=== PATIENT | female | born 1995 | race American Indian/Alaskan Native ===

== ENCOUNTER 2017-10-07 04:54 | Emergency (ER) | payer MEDICAID, OTHER ==
[2017-10-07 05:16] VITALS: BP 140/86
[2017-10-07] MEDS ORDERED: Ondansetron 4 MG/2 ML SDV IV ONE (05:16)
--- NOTE | 2017-10-07 05:19 | EDM.PDOC ---
ED HPI GENERAL MEDICAL PROBLEM - General Chief Complaint: Abdominal Pain Stated Complaint: SEVERE STOMACH PAIN [id number] Time Seen by Provider: 10/07/17 05:17 Source of Information: Reports: Patient History Limitations: Reports: No Limitations - History of Present Illness INITIAL COMMENTS - FREE TEXT/NARRATIVE: c/o abd pain since 11pm tonight. nauseous but no V/D. ate potatoes & eggs last night Lower Abdominal Pain Score (Numeric/FACES): 9 - Related Data Allergies Allergy/AdvReac Type Severity Reaction Status Date / Time No Known Allergies Allergy Verified 01/30/15 00:52 Home Meds: Home Meds Amitriptyline HCl 1 tab PO DAILY 10/07/17 [History] Cholecalciferol (Vitamin D3) [Vitamin D] 10,000 units PO WEEKLY 10/07/17 [ History] Montelukast [Singulair] 1 tab PO DAILY 10/07/17 [History] Past Medical History - Past Health History Medical/Surgical History: Denies Medical/Surgical History Respiratory History: Reports: Asthma Gastrointestinal History: Reports: Helicobacter Pylori Psychiatric History: Reports: Anxiety Social & Family History - Tobacco Use Smoking Status *Q: Unknown Ever Smoked Second Hand Smoke Exposure: No - Caffeine Use Caffeine Use: Reports: Coffee - Alcohol Use Days Per Week of Alcohol Use: 0 - Recreational Drug Use Recreational Drug Use: No ED ROS GENERAL - Review of Systems Review Of Systems: ROS reveals no pertinent complaints other than HPI. ED EXAM, GI/ABD - Physical Exam Exam: See Below Exam Limited By: No Limitations General Appearance: Alert, WD/WN, Mild Distress Ears: Hearing Grossly Normal Throat/Mouth: Normal Voice, No Airway Compromise Head: Atraumatic Neck: Non-Tender, Full Range of Motion Respiratory/Chest: No Respiratory Distress Cardiovascular: Regular Rate, Rhythm GI/Abdominal Exam: Soft, Tender, Other (periumb). No: Distended, Guarding, Rigid, Rebound Neurological: Alert, Oriented, Normal Cognition, Normal Gait, No Motor/Sensory Deficits Psychiatric: Flat Affect Skin Exam: Warm, Dry, Normal Color Lymphatic: No Adenopathy Course - Vital Signs Last Recorded V/S: Last Vital Signs Temp 36.7 C 10/07/17 05:10 Pulse 98 10/07/17 05:10 Resp 20 10/07/17 05:10 BP 140/86 10/07/17 05:10 Pulse Ox 100 10/07/17 05:10 - Orders/Labs/Meds Orders: Active Orders 24 hr Category Date Time Status CULTURE URINE [RM] Stat Lab 10/07/17 05:35 Received Labs: Laboratory Tests 10/07/17 10/07/17 10/07/17 Range/Units 05:00 05:00 05:55 WBC 14.3 H (5.0-10.0) 10^3/uL RBC 4.96 (4.2-5.4) 10^6/uL Hgb 14.1 (12.0-16.0) g/dL Hct 42.9 (37.0-47.0) % MCV 86.5 (80-100) fL MCH 28.4 (27.0-34.0) pg MCHC 32.9 L (33.0-35.0) g/dL Plt Count 357 D (150-450) 10^3/uL Neut % (Auto) 63.0 (42.2-75.2) % Lymph % (Auto) 25.6 (20.5-50.1) % [place] % (Auto) 7.1 (2-8) % Eos % (Auto) 3.8 H (1.0-3.0) % Baso % (Auto) 0.5 (0.0-1.0) % Sodium 137 (135-145) mmol/L Potassium 3.6 (3.6-5.0) mmol/L Chloride 109 (101-111) mmol/L Carbon Dioxide 21.0 (21.0-31.0) mmol/L Anion Gap 10.6 BUN 9 (7-18) mg/dL Creatinine 0.6 (0.6-1.3) mg/dL Est Cr Clr Drug Dosing 127.47 mL/min Estimated GFR (MDRD) > 60 BUN/Creatinine Ratio 15.00 Glucose 123 H (74-105) mg/dL Calcium 9.2 (8.4-10.2) mg/dl Total Bilirubin 0.7 (0.2-1.0) mg/dL AST 46 H (10-42) IU/L ALT 51 (10-60) IU/L Alkaline Phosphatase 98 (42-121) IU/L Total Protein 7.8 (6.7-8.2) g/dl Albumin 4.3 (3.2-5.5) g/dl Globulin 3.5 Albumin/Globulin Ratio 1.23 Amylase 25 L (28-100) U/L Lipase 19 L (22-51) U/L Urine Color Dark yellow (YELLOW) Urine Appearance Clear (CLEAR) Urine pH 5.5 (5.0-9.0) Ur Specific [place] >= 1.030 (1.005-1.030) Urine Protein Negative (NEGATIVE) Urine Glucose (UA) Negative (NEGATIVE) Urine Ketones Negative (NEGATIVE) Urine Occult Blood Trace-lysed H (NEGATIVE) Urine Nitrite Negative (NEGATIVE) Urine Bilirubin Negative (NEGATIVE) Urine Urobilinogen 0.2 (0.2-1.0) mg/dL Ur Leukocyte Esterase Small H (NEGATIVE) Urine RBC 5-10 H /HPF Urine WBC 50-75 H (0-5/HPF) /HPF Ur Epithelial Cells Moderate H /HPF Urine Bacteria Few (0-FEW/HPF) /HPF Urine Mucus Few H /LPF Urine HCG, Qual 10/07/17 Range/Units 05:55 WBC (5.0-10.0) 10^3/uL RBC (4.2-5.4) 10^6/uL Hgb (12.0-16.0) g/dL Hct (37.0-47.0) % MCV (80-100) fL MCH (27.0-34.0) pg MCHC (33.0-35.0) g/dL Plt Count (150-450) 10^3/uL Neut % (Auto) (42.2-75.2) % Lymph % (Auto) (20.5-50.1) % [place] % (Auto) (2-8) % Eos % (Auto) (1.0-3.0) % Baso % (Auto) (0.0-1.0) % Sodium (135-145) mmol/L Potassium (3.6-5.0) mmol/L Chloride (101-111) mmol/L Carbon Dioxide (21.0-31.0) mmol/L Anion Gap BUN (7-18) mg/dL Creatinine (0.6-1.3) mg/dL Est Cr Clr Drug Dosing mL/min Estimated GFR (MDRD) BUN/Creatinine Ratio Glucose (74-105) mg/dL Calcium (8.4-10.2) mg/dl Total Bilirubin (0.2-1.0) mg/dL AST (10-42) IU/L ALT (10-60) IU/L Alkaline Phosphatase (42-121) IU/L Total Protein (6.7-8.2) g/dl Albumin (3.2-5.5) g/dl Globulin Albumin/Globulin Ratio Amylase (28-100) U/L Lipase (22-51) U/L Urine Color (YELLOW) Urine Appearance (CLEAR) Urine pH (5.0-9.0) Ur Specific [place] (1.005-1.030) Urine Protein (NEGATIVE) Urine Glucose (UA) (NEGATIVE) Urine Ketones (NEGATIVE) Urine Occult Blood (NEGATIVE) Urine Nitrite (NEGATIVE) Urine Bilirubin (NEGATIVE) Urine Urobilinogen (0.2-1.0) mg/dL Ur Leukocyte Esterase (NEGATIVE) Urine RBC /HPF Urine WBC (0-5/HPF) /HPF Ur Epithelial Cells /HPF Urine Bacteria (0-FEW/HPF) /HPF Urine Mucus /LPF Urine HCG, Qual Negative Meds: Medications Discontinued Medications Generic Name Dose Route Start Last Admin Trade Name Freq PRN Reason Stop Dose Admin Morphine Sulfate 2 mg 10/07/17 06:13 10/07/17 06:16 Morphine IVPUSH 10/07/17 06:14 2 mg ONETIME ONE Administration Ondansetron HCl 4 mg 10/07/17 05:16 10/07/17 06:13 Zofran IV 10/07/17 05:17 4 mg ONETIME ONE Administration Departure - Departure Time of Disposition: 07:50 Disposition: Home, Self-Care 01 Condition: Good Clinical Impression: UTI, Urinary tract infectious disease - Discharge Information Referrals: Erin Berger NP [Primary Care Provider] - Forms: ED Department Discharge Additional Instructions: 1) drink lots of liquids 2) follow up at clinic or recheck as needed rx given; bactrim DS bid x 20 pyridium 100mg tid prn x 12
[2017-10-07 05:31] LABS: CHLORIDE,CL 109 mmol/L (101-111); SODIUM,NA 137 mmol/L (135-145)
[2017-10-07] MEDS ORDERED: Morphine 2 MG/ML Syringe IVPUSH ONE (06:13)
== END 2017-10-07 07:50 | disposition home or self-care (01) ==
LOC: DL.ED 04:54
DX: N39.0 Urinary tract infection, site not specified (principal)
CPT/HCPCS: 36415; 74176; 80053; 81001; 81025; 82150; 83690; 85025; 87086; 96374; 96375; 99284; J2270; J2405

== ENCOUNTER 2019-12-23 16:49 | Emergency (ER) | payer MEDICAID, OTHER ==
[2019-12-23 16:58] VITALS: BP 158/68; PULSE 100
[2019-12-23] MEDS ORDERED: Sodium Chloride 0.9% 1,000 ML IV ONE (17:07)
[2019-12-23] MEDS ORDERED: Ketorolac 30 MG/ML SDV IVPUSH ONE (17:07)
--- NOTE | 2019-12-23 17:14 | EDM.PDOC ---
ED HPI GENERAL MEDICAL PROBLEM - General Chief Complaint: Back Pain or Injury Stated Complaint: LOWER BACK PAIN/HEADACHE Time Seen by Provider: 12/23/19 17:00 Source of Information: Reports: Patient History Limitations: Reports: No Limitations - History of Present Illness INITIAL COMMENTS - FREE TEXT/NARRATIVE: This 24 yo female patient reports to the ED with a migraine headache and lower back pain radiating to her legs. The patient reports her headache started today. The patient reports a history of migraine headaches, but her abortive medications are all . The patient has not taken Tylenol or ibuprofen for temporary symptom relief. The patient also reports low back pain. The patient reports her low back pain has been present for awhile and the patient had an MRI last week for her low back pain. The patient reports she is waiting for her provider to call her back with the results. Onset: Today Duration: Constant Location: Reports: Head, Back Quality: Reports: Ache Severity: Moderate Improves with: Reports: None Worsens with: Reports: None Context: Reports: Other Left Back Pain Score (Numeric/FACES): 7 - Related Data Allergies Allergy/AdvReac Type Severity Reaction Status Date / Time hydromorphone [From Dilaudid] Allergy Anaphylactic Verified 12/23/19 16:56 Shock Home Meds: Home Meds Amitriptyline HCl 1 tab PO DAILY 10/07/17 [History] Past Medical History - Past Health History Medical/Surgical History: Denies Medical/Surgical History HEENT History: Reports: Impaired Vision Cardiovascular History: Reports: None Respiratory History: Reports: Asthma Gastrointestinal History: Reports: Helicobacter Pylori Genitourinary History: Reports: None CHILDREN'S NURSERY ASSISTANT History: Reports: None Musculoskeletal History: Reports: Back Pain, Chronic, Other (See Below) Other Musculoskeletal History: bulging disk Neurological History: Reports: Migraines Psychiatric History: Reports: Anxiety Endocrine/Metabolic History: Reports: Obesity/BMI 30+ Hematologic History: Reports: None Immunologic History: Reports: None Oncologic (Cancer) History: Reports: None Dermatologic History: Reports: None - Infectious Disease History Infectious Disease History: Reports: None - Past Surgical History Head Surgeries/Procedures: Reports: None Social & Family History - Family History Family Medical History: Noncontributory - Tobacco Use Smoking Status *Q: Never Smoker Second Hand Smoke Exposure: No - Caffeine Use Caffeine Use: Reports: Soda - Recreational Drug Use Recreational Drug Use: No ED ROS GENERAL - Review of Systems Review Of Systems: Comprehensive ROS is negative, except as noted in HPI. - Physical Exam Exam: See Below Exam Limited By: No Limitations General Appearance: Alert, WD/WN, Moderate Distress, Obese Eye Exam: Bilateral Eye: EOMI, Normal Inspection, PERRL Ears: Normal External Exam, Normal Canal, Hearing Grossly Normal, Normal TMs Nose: Normal Inspection, Normal Mucosa, No Blood Throat/Mouth: Normal Inspection, Normal Lips, Normal Teeth, Normal Gums, Normal Oropharynx, Normal Voice, No Airway Compromise Head Exam: Atraumatic, Normocephalic Neck: Normal Inspection, Supple, Non-Tender, Full Range of Motion Respiratory/Chest: No Respiratory Distress, Lungs Clear, Normal Breath Sounds, No Accessory Muscle Use, Chest Non-Tender Cardiovascular: Normal Peripheral Pulses, Regular Rate, Rhythm, No Edema, No Gallop, No JVD, No Murmur, No Rub GI/Abdominal: Normal Bowel Sounds, Soft, Non-Tender, No Organomegaly, No Distention, No Abnormal Bruit, No Mass (Female) Exam: Deferred Rectal (Female) Exam: Deferred Neuro Exam (Abbreviated): Alert, Oriented, CN II-XII Intact, Normal Cognition, Normal Gait, Normal Reflexes, No Motor/Sensory Deficits Extremities: Normal Inspection Psychiatric: Normal Affect, Normal Mood Skin Exam: Warm, Dry, Intact, Normal Color, No Rash Course - Vital Signs Last Recorded V/S: Last Vital Signs Temp 35.8 C L 12/23/19 16:55 Pulse 100 12/23/19 16:55 Resp 20 12/23/19 16:55 BP 158/68 H 12/23/19 16:55 Pulse Ox 96 12/23/19 16:55 - Orders/Labs/Meds Orders: Active Orders 24 hr Category Date Time Status Sodium Chloride 0.9% [Normal Saline] 1,000 ml Med 12/23/19 17:07 Ordered IV .BOLUS Medication Orders Sodium Chloride (Normal Saline) 1,000 mls @ 999 mls/hr IV .BOLUS ONE Stop: 12/23/19 18:07 Last Admin: 12/23/19 17:12 Dose: 999 mls/hr Documented by: YULIANA Meds: Medications Generic Name Dose Route Start Last Admin Trade Name Freq PRN Reason Stop Dose Admin Sodium Chloride 1,000 mls @ 999 mls/hr 12/23/19 17:07 12/23/19 17:12 Normal Saline IV 12/23/19 18:07 999 mls/hr .BOLUS ONE Administration Discontinued Medications Generic Name Dose Route Start Last Admin Trade Name Scooby PRN Reason Stop Dose Admin Acetaminophen 1,000 mg 12/23/19 17:48 Tylenol Extra Strength PO 12/23/19 17:49 ONETIME ONE Ketorolac Tromethamine 30 mg 12/23/19 17:07 12/23/19 17:12 Toradol IVPUSH 12/23/19 17:08 30 mg ONETIME ONE Administration Departure - Departure Time of Disposition: 17:50 Disposition: Home, Self-Care 01 Condition: Fair Clinical Impression: Migraine Qualifiers: Migraine type: unspecified Status migrainosus presence: with status migrainosus Intractability: not intractable Qualified Code(s): G43.901 - Migraine, unspecified, not intractable, with status migrainosus Chronic back pain Qualifiers: Back pain location: low back pain Back pain laterality: bilateral Sciatica presence: with sciatica Sciatica laterality: bilateral sciatica Qualified Code(s): M54.42 - Lumbago with sciatica, left side; M54.41 - Lumbago with sciatica, right side; G89.29 - Other chronic pain - Discharge Information *PRESCRIPTION DRUG MONITORING PROGRAM REVIEWED*: Not Applicable *COPY OF PRESCRIPTION DRUG MONITORING REPORT IN PATIENT MARIAA: Not Applicable Instructions: Migraine Headache, [id number], Chronic Back Pain, [id number] Forms: ED Department Discharge Care Plan Goals: The patient was advised of the examination and lab results during the visit. The patient was given IV fluids, oral Tylenol and IV Toradol while in the ED. The patient was encouraged to increase her oral fluid intake over the next 48 hours. The patient may take Tylenol or ibuprofen as directed for temporary symptom relief. If the patient has any additional symptoms or concerns, the patient should either return to the emergency department or visit her primary care facility. Sepsis Event Note (ED) - Evaluation Sepsis Screening Result: No Definite Risk - Focused Exam Vital Signs: Vital Signs Temp Pulse Resp BP Pulse Ox 12/23/19 16:55 35.8 C L 100 20 158/68 H 96 - My Orders Last 24 Hours: My Active Orders 12/23/19 17:07 Sodium Chloride 0.9% [Normal Saline] 1,000 ml IV .BOLUS - Assessment/Plan Last 24 Hours: My Active Orders 12/23/19 17:07 Sodium Chloride 0.9% [Normal Saline] 1,000 ml IV .BOLUS
[2019-12-23] MEDS ORDERED: Acetaminophen 500 MG Tab PO ONE (17:48)
== END 2019-12-23 17:55 | disposition home or self-care (01) ==
LOC: DL.ED 16:49
DX: G43.901 Migraine, unspecified, not intractable, with status migrainosus (principal); M54.42 Lumbago with sciatica, left side; M54.41 Lumbago with sciatica, right side; G89.29 Other chronic pain; F41.9 Anxiety disorder, unspecified; E66.9 Obesity, unspecified; Z88.5 Allergy status to narcotic agent; Z79.899 Other long term (current) drug therapy; Z68.41 Body mass index [BMI] 40.0-44.9, adult
CPT/HCPCS: 96374; 99283; A9270; J1885; J7030

== ENCOUNTER 2020-07-13 16:31 | Emergency (ER) | payer MEDICAID ==
[2020-07-13 17:29] VITALS: BP 128/91; PULSE 112
[2020-07-13 18:16] LABS: ANION GAP 11.9 mEq/L (7-13); CHLORIDE,CL 105 mmol/L (98-107); SODIUM,NA 139 mmol/L (136-145)
--- NOTE | 2020-07-13 18:17 | EDM.PDOC ---
ED HPI GENERAL MEDICAL PROBLEM - General Chief Complaint: Genitourinary Problem Stated Complaint: EXCESSIVE BLEEDING MENSTRUAL Time Seen by Provider: 07/13/20 17:45 Source of Information: Reports: Patient, RN, RN Notes Reviewed History Limitations: Reports: No Limitations - History of Present Illness INITIAL COMMENTS - FREE TEXT/NARRATIVE: Patient presents to the ED via personal vehicle with complaints of heavy menstrual bleeding for the past two days. The patient states her menses started on 07/11/20 and has been abnormally heavy; she has been saturating pads every two hours. She notes her LMP prior to this cycle was 06/04/20, and this cycle may have been late. She denies likelihood of . Additionally, she attests to headache, fatigue, nausea, bloating, abdominal cramps and constipation. She denies fever, shaking chills, palpitations, vomiting, dysuria, hematuria, hematochezia, melena, or diarrhea. She states she has taken one dose of Advil 400mg this morning for abdominal cramps which offered her [id number] relief of symptoms. She denies any recent rough sexual activity. Vaginal Pain Score (Numeric/FACES): 4 - Related Data Allergies Allergy/AdvReac Type Severity Reaction Status Date / Time hydromorphone [From Dilaudid] Allergy Anaphylactic Verified 07/13/20 17:27 Shock Home Meds: Home Meds Amitriptyline HCl 1 tab PO DAILY 10/07/17 [History] Loratadine [Claritin] 10 mg PO ASDIRECTED 04/21/20 [History] clonazePAM [Clonazepam] 1 mg PO ASDIRECTED 04/21/20 [History] Past Medical History - Past Health History Medical/Surgical History: Denies Medical/Surgical History HEENT History: Reports: Impaired Vision Cardiovascular History: Reports: None Respiratory History: Reports: Asthma Gastrointestinal History: Reports: Helicobacter Pylori Genitourinary History: Reports: None PLANT CYTOLOGIST History: Reports: None Musculoskeletal History: Reports: Back Pain, Chronic, Other (See Below) Other Musculoskeletal History: bulging disk Neurological History: Reports: Migraines Psychiatric History: Reports: Anxiety Endocrine/Metabolic History: Reports: Obesity/BMI 30+ Hematologic History: Reports: None Immunologic History: Reports: None Oncologic (Cancer) History: Reports: None Dermatologic History: Reports: None - Infectious Disease History Infectious Disease History: Reports: None - Past Surgical History Head Surgeries/Procedures: Reports: None Social & Family History - Family History Family Medical History: No Pertinent Family History - Tobacco Use Tobacco Use Status *Q: Never Tobacco User - Caffeine Use Caffeine Use: Reports: Soda - Recreational Drug Use Recreational Drug Use: No ED ROS GENERAL - Review of Systems Review Of Systems: Comprehensive ROS is negative, except as noted in HPI. ED EXAM, GI/ABD - Physical Exam Exam: See Below Exam Limited By: No Limitations General Appearance: Alert, No Apparent Distress Eyes: Bilateral: Normal Appearance, EOMI Throat/Mouth: Normal Inspection, Normal Voice, No Airway Compromise Respiratory/Chest: No Respiratory Distress, Lungs Clear, Normal Breath Sounds, No Accessory Muscle Use, Chest Non-Tender Cardiovascular: Normal Peripheral Pulses, Regular Rate, Rhythm, No Edema, No Gallop, No JVD, No Murmur, No Rub GI/Abdominal Exam: Soft, No Distention, No Mass, Pelvis Stable, Tender (To LUQ and RLQ), Abnormal Bowel Sounds (Hypoactive bowel sounds) Rectal (Female) Exam: Deferred Back Exam: Normal Inspection, Full Range of Motion, CVA Tenderness (R). No: CVA Tenderness (L) Extremities: Normal Inspection, Normal Range of Motion, Non-Tender, Normal Capillary Refill, No Pedal Edema Neurological: Alert, Oriented, CN II-XII Intact, Normal Cognition, Normal Gait, No Motor/Sensory Deficits Psychiatric: Normal Affect, Normal Mood Skin Exam: Warm, Dry, Intact, Normal Color, No Rash. No: Ecchymosis, Erythema, Jaundice, Mottled, Pallor, Petechiae Course - Vital Signs Last Recorded V/S: Last Vital Signs Temp 97.5 F 07/13/20 17:27 Pulse 112 H 07/13/20 17:27 Resp 16 07/13/20 17:27 BP 128/91 H 07/13/20 17:27 Pulse Ox 98 07/13/20 17:27 - Orders/Labs/Meds Labs: Laboratory Tests 07/13/20 07/13/20 07/13/20 Range/Units 17:52 17:52 18:39 WBC 10.8 H (5.0-10.0) 10^3/uL RBC 4.60 (4.2-5.4) 10^6/uL Hgb 13.4 (12.0-16.0) g/dL Hct 40.4 (37.0-47.0) % MCV 87.8 (80-100) fL MCH 29.1 (27.0-34.0) pg MCHC 33.2 (33.0-35.0) g/dL Plt Count 324 (150-450) 10^3/uL Neut % (Auto) 57.6 (42.2-75.2) % Lymph % (Auto) 25.9 (20.5-50.1) % [place] % (Auto) 7.9 (2-8) % Eos % (Auto) 8.0 H (1.0-3.0) % Baso % (Auto) 0.6 (0.0-1.0) % Sodium 139 (136-145) mmol/L Potassium 3.9 (3.5-5.1) mmol/L Chloride 105 (98-107) mmol/L Carbon Dioxide 26 (21-32) mmol/L Anion Gap 11.9 (7-13) mEq/L BUN 9 (7-18) mg/dL Creatinine 0.52 L (0.55-1.02) mg/dL Est Cr Clr Drug Dosing 146.23 mL/min Estimated GFR (MDRD) > 60 BUN/Creatinine Ratio 17.3 (No establ ref range) Glucose 80 (74-99) mg/dL Calcium 8.7 (8.5-10.1) mg/dL Total Bilirubin 0.2 (0.2-1.0) mg/dL AST 20 (15-37) U/L ALT 40 (14-59) U/L Alkaline Phosphatase 89 (46-116) U/L Total Protein 7.1 (6.4-8.2) g/dL Albumin 3.6 (3.4-5.0) g/dL Globulin 3.5 Albumin/Globulin Ratio 1.0 Urine Color Red (YELLOW) Urine Appearance Turbid (CLEAR) Urine pH 7.0 (5.0-9.0) Ur Specific [place] 1.025 (1.005-1.030) Urine Protein 100 H (NEGATIVE) Urine Glucose (UA) Negative (NEGATIVE) Urine Ketones Negative (NEGATIVE) Urine Occult Blood Large H (NEGATIVE) Urine Nitrite Negative (NEGATIVE) Urine Bilirubin Negative (NEGATIVE) Urine Urobilinogen 1.0 (0.2-1.0) mg/dL Ur Leukocyte Esterase Negative (NEGATIVE) Urine RBC Packed H /HPF Urine WBC 0-5 (0-5/HPF) /HPF Ur Epithelial Cells Occasional (NOT SEEN) /HPF Amorphous Sediment Occasional (NOT SEEN) /HPF Urine Bacteria Occasional (0-FEW/HPF) /HPF Urine Mucus Rare (NOT SEEN) /LPF Urine HCG, Qual 07/13/20 Range/Units 18:39 WBC (5.0-10.0) 10^3/uL RBC (4.2-5.4) 10^6/uL Hgb (12.0-16.0) g/dL Hct (37.0-47.0) % MCV (80-100) fL MCH (27.0-34.0) pg MCHC (33.0-35.0) g/dL Plt Count (150-450) 10^3/uL Neut % (Auto) (42.2-75.2) % Lymph % (Auto) (20.5-50.1) % [place] % (Auto) (2-8) % Eos % (Auto) (1.0-3.0) % Baso % (Auto) (0.0-1.0) % Sodium (136-145) mmol/L Potassium (3.5-5.1) mmol/L Chloride (98-107) mmol/L Carbon Dioxide (21-32) mmol/L Anion Gap (7-13) mEq/L BUN (7-18) mg/dL Creatinine (0.55-1.02) mg/dL Est Cr Clr Drug Dosing mL/min Estimated GFR (MDRD) BUN/Creatinine Ratio (No establ ref range) Glucose (74-99) mg/dL Calcium (8.5-10.1) mg/dL Total Bilirubin (0.2-1.0) mg/dL AST (15-37) U/L ALT (14-59) U/L Alkaline Phosphatase (46-116) U/L Total Protein (6.4-8.2) g/dL Albumin (3.4-5.0) g/dL Globulin Albumin/Globulin Ratio Urine Color (YELLOW) Urine Appearance (CLEAR) Urine pH (5.0-9.0) Ur Specific [place] (1.005-1.030) Urine Protein (NEGATIVE) Urine Glucose (UA) (NEGATIVE) Urine Ketones (NEGATIVE) Urine Occult Blood (NEGATIVE) Urine Nitrite (NEGATIVE) Urine Bilirubin (NEGATIVE) Urine Urobilinogen (0.2-1.0) mg/dL Ur Leukocyte Esterase (NEGATIVE) Urine RBC /HPF Urine WBC (0-5/HPF) /HPF Ur Epithelial Cells (NOT SEEN) /HPF Amorphous Sediment (NOT SEEN) /HPF Urine Bacteria (0-FEW/HPF) /HPF Urine Mucus (NOT SEEN) /LPF Urine HCG, Qual Negative Meds: Medications Discontinued Medications Generic Name Dose Route Start Last Admin Trade Name Scooby PRN Reason Stop Dose Admin Acetaminophen 1,000 mg 07/13/20 18:46 07/13/20 18:51 Tylenol Extra Strength PO 07/13/20 18:47 1,000 mg ONETIME ONE Administration Departure - Departure Time of Disposition: 19:35 Disposition: Home, Self-Care 01 Condition: Good Clinical Impression: Menstrual changes, Menstrual cramp, Nausea Fatigue Qualifiers: Fatigue type: other Qualified Code(s): R53.83 - Other fatigue - Discharge Information *PRESCRIPTION DRUG MONITORING PROGRAM REVIEWED*: Not Applicable *COPY OF PRESCRIPTION DRUG MONITORING REPORT IN PATIENT MARIAA: Not Applicable Instructions: Nausea, Adult, [id number], Dysmenorrhea, [id number] Forms: ED Department Discharge Additional Instructions: Rx: Zofran 1.) Continue to monitor your menstrual cycle; if significant bleeding persists (complete saturation of one heavy maxi-pad in one hour for two consecutive hours) follow up with your primary care provider or the emergency department. 2.) You may take ibuprofen (Advil/Motrin) 400mg every six hours for cramps. You may also take acetaminophen (Tylenol) 1000mg ever six hours for cramps. You may stagger these medications so you are taking a dose every three hours. 3.) You may apply heat to you abdomen and back to help alleviate cramps. 4.) Drink plenty of water to stay hydrated. 5.) Eat a full-fiber diet to help with constipation; you may also take a stool softener as needed. Sepsis Event Note (ED) - Evaluation Sepsis Screening Result: No Definite Risk
[2020-07-13] MEDS ORDERED: Acetaminophen 500 MG Tab PO ONE (18:46)
--- NOTE | 2020-07-13 19:20 | CR ---
PROCEDURE INFORMATION: Exam: XR Abdomen, 1 View Exam date and time: 07/13/2020 6:55 PM Age: 25 years old Clinical indication: Constipation; Additional info: Constipation; Abdominal pain TECHNIQUE: Imaging protocol: XR of the abdomen. Views: Frontal supine view of the abdomen. 1 View. COMPARISON: CT Abdomen Pelvis wo Cont 10/07/2017 6:28 AM FINDINGS: Gastrointestinal tract: Normal. No bowel dilation. Bones/joints: Unremarkable. IMPRESSION: 1. No acute findings. 2. No bowel obstruction. 3. No colonic fecal retention.
== END 2020-07-13 19:53 | disposition home or self-care (01) ==
LOC: DL.ED 16:31
DX: N94.6 Dysmenorrhea, unspecified (principal); R53.83 Other fatigue; R11.0 Nausea; J45.909 Unspecified asthma, uncomplicated; E66.9 Obesity, unspecified; Z68.41 Body mass index [BMI] 40.0-44.9, adult; Z88.5 Allergy status to narcotic agent; Z79.899 Other long term (current) drug therapy
CPT/HCPCS: 36415; 74018; 80053; 81001; 81025; 85025; 99283; 99284; A9270

== ENCOUNTER 2020-09-23 15:38 | Emergency (ER) | payer MEDICAID, OTHER ==
[2020-09-23 15:58] VITALS: BP 111/88; PULSE 94
[2020-09-23] MEDS ORDERED: Sodium Chloride 0.9% 1,000 ML IV ONE (16:10)
[2020-09-23] MEDS ORDERED: Ondansetron 4 MG/2 ML SDV IVPUSH ONE (16:10)
[2020-09-23] MEDS ORDERED: Ketorolac 30 MG/ML SDV IVPUSH ONE (16:10)
[2020-09-23] MEDS ORDERED: diphenhydrAMINE 50 MG/ML SDV IVPUSH ONE (16:12)
--- NOTE | 2020-09-23 16:12 | EDM.PDOC ---
ED HPI GENERAL MEDICAL PROBLEM - General Chief Complaint: Headache Stated Complaint: MIGRAINE AND NAUSEA [id number] Time Seen by Provider: 09/23/20 16:11 Source of Information: Reports: Patient, Old Records, RN, RN Notes Reviewed History Limitations: Reports: No Limitations - History of Present Illness INITIAL COMMENTS - FREE TEXT/NARRATIVE: Patient presents to the ED via personal vehicle with complaints of migraine which began about 0200 today. The patient reports a history of migraine for which she takes Amitriptyline 150 HS, daily. She reports she has not required abortive therapy for migraines since starting this medication but attempted to relieve her symptoms today with Advil 400mg. The patient states she immediately vomited up the pills and attempted a second dose of Advil 400mg about four hours prior to her presentation here; she vomited up this dose, as well. She denies recent illness, fever, shaking chills, aura, vision changes, phonophobia, palpitations, shortness of breath, or diarrhea. She does attest to photophobia with her migraine. The patient describes the pain as sharp in nature and notes it radiates from her post-auricular area to behind her eyes, bilaterally. She reports she started her menses today. She denies tobacco, alcohol, or recreational drug use. headache Pain Score (Numeric/FACES): 8 - Related Data Allergies Allergy/AdvReac Type Severity Reaction Status Date / Time hydromorphone [From Dilaudid] Allergy Anaphylactic Verified 09/23/20 16:06 Shock Home Meds: Home Meds Amitriptyline HCl 150 mg PO BEDTIME 10/07/17 [History] Loratadine [Claritin] 10 mg PO DAILY 04/21/20 [History] clonazePAM [Clonazepam] 1 mg PO Q4H PRN 04/21/20 [History] Ibuprofen [Advil] 400 mg PO Q6H PRN 09/23/20 [History] Past Medical History - Past Health History Medical/Surgical History: Denies Medical/Surgical History HEENT History: Reports: Impaired Vision Cardiovascular History: Reports: None Respiratory History: Reports: Asthma Gastrointestinal History: Reports: Helicobacter Pylori Genitourinary History: Reports: None 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: 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 Musculoskeletal History: Reports: Back Pain, Chronic, Other (See Below) Other Musculoskeletal History: bulging disk Neurological History: Reports: Migraines Psychiatric History: Reports: Anxiety Endocrine/Metabolic History: Reports: Obesity/BMI 30+ Hematologic History: Reports: None Immunologic History: Reports: None Oncologic (Cancer) History: Reports: None Dermatologic History: Reports: None - Infectious Disease History Infectious Disease History: Reports: None - Past Surgical History Head Surgeries/Procedures: Reports: None Social & Family History - Family History Family Medical History: No Pertinent Family History - Caffeine Use Caffeine Use: Reports: Soda ED ROS GENERAL - Review of Systems Review Of Systems: Comprehensive ROS is negative, except as noted in HPI. - Physical Exam Exam: See Below Exam Limited By: No Limitations General Appearance: Alert, No Apparent Distress Eye Exam: Bilateral Eye: EOMI, Normal Inspection, Periorbital Changes (3mm) Ears: Normal External Exam, Normal Canal, Hearing Grossly Normal, Normal TMs Nose: Normal Inspection, Normal Mucosa, No Blood Throat/Mouth: Normal Oropharynx, Normal Voice, No Airway Compromise Head Exam: Atraumatic, Normocephalic Respiratory/Chest: No Respiratory Distress, Lungs Clear, Normal Breath Sounds, No Accessory Muscle Use, Chest Non-Tender Cardiovascular: Normal Peripheral Pulses, Regular Rate, Rhythm, No Edema, No Gallop, No JVD, No Murmur, No Rub GI/Abdominal: Normal Bowel Sounds, Soft, Non-Tender, No Distention, No Mass, Pelvis Stable (Female) Exam: Deferred Rectal (Female) Exam: Deferred Neuro Exam (Abbreviated): Alert, Oriented, CN II-XII Intact, Normal Cognition, Normal Gait, Normal Reflexes, No Motor/Sensory Deficits Back Exam: Normal Inspection, Full Range of Motion Extremities: Normal Inspection, Normal Range of Motion, Non-Tender, No Pedal Edema, Normal Capillary Refill Psychiatric: Normal Affect, Normal Mood Skin Exam: Warm, Dry, Intact, Normal Color, No Rash. No: Ecchymosis, Erythema, Jaundice, Mottled, Pallor, Petechiae Course - Vital Signs Last Recorded V/S: Last Vital Signs Temp 96.0 F L 09/23/20 15:57 Pulse 94 09/23/20 15:57 Resp 18 09/23/20 15:57 BP 111/88 09/23/20 15:57 Pulse Ox 96 09/23/20 15:57 - Orders/Labs/Meds Meds: Medications Discontinued Medications Generic Name Dose Route Start Last Admin Trade Name Freq PRN Reason Stop Dose Admin Diphenhydramine HCl 50 mg 09/23/20 16:12 09/23/20 16:39 Diphenhydramine 50 Mg/Ml Sdv IVPUSH 09/23/20 16:13 50 mg ONETIME ONE Administration Sodium Chloride 1,000 mls @ 999 mls/hr 09/23/20 16:10 09/23/20 16:33 Normal Saline IV 09/23/20 17:10 999 mls/hr .BOLUS ONE Administration Ketorolac Tromethamine 30 mg 09/23/20 16:10 09/23/20 16:37 Ketorolac 30 Mg/Ml Sdv IVPUSH 09/23/20 16:11 30 mg ONETIME ONE Administration Ondansetron HCl 4 mg 09/23/20 16:10 09/23/20 16:35 Ondansetron 4 Mg/2 Ml Sdv IVPUSH 09/23/20 16:11 4 mg ONETIME ONE Administration Sumatriptan Succinate 6 mg 09/23/20 17:20 09/23/20 17:42 Sumatriptan 6 Mg/0.5 Ml Sdv SUBCUT 09/23/20 17:21 6 mg ONETIME ONE Administration - Re-Assessments/Exams Free Text/Narrative Re-Assessment/Exam: 09/23/20 NS 1L bolus initiated. Benadryl 50mg IVP, Zofran 4mg IVP, and Toradol 30mg IVP administered. Patient verbalized a reduction in migraine, but still notes a sharp pain behind her eyes which she rates at a 7/10. Will treat with Sumatriptan. Patient verbalized complete resolution of migraine. Discussed supportive cares for the prevention of migraine as well as indications for follow up. Patient verbalized understanding and agreement with the plan of care. Departure - Departure Time of Disposition: 18:31 Disposition: Home, Self-Care 01 Condition: Good Clinical Impression: Migraine Qualifiers: Migraine type: unspecified Status migrainosus presence: with status migrainosus Intractability: not intractable Qualified Code(s): G43.901 - Migraine, unspecified, not intractable, with status migrainosus - Discharge Information *PRESCRIPTION DRUG MONITORING PROGRAM REVIEWED*: Not Applicable *COPY OF PRESCRIPTION DRUG MONITORING REPORT IN PATIENT MARIAA: Not Applicable Instructions: Migraine Headache, [id number] Referrals: Erin Berger NP [Primary Care Provider] - Forms: ED Department Discharge Additional Instructions: 1.) Drink plenty of water to stay hydrated. 2.) Eat small, frequent meals to avoid nausea. 3.) Rest for the remainder of the day until your symptoms completely resolve. 4.) Follow up with your primary care provider regarding today's visit. Sepsis Event Note (ED) - Evaluation Sepsis Screening Result: No Definite Risk
[2020-09-23] MEDS ORDERED: SUMAtriptan 6 MG/0.5 ML SDV SUBCUT ONE (17:20)
== END 2020-09-23 19:19 | disposition home or self-care (01) ==
LOC: DL.ED 15:38
DX: G43.901 Migraine, unspecified, not intractable, with status migrainosus (principal); E66.9 Obesity, unspecified; Z88.5 Allergy status to narcotic agent; Z68.41 Body mass index [BMI] 40.0-44.9, adult
CPT/HCPCS: 96372; 96374; 96375; 99283; 99283-25; J1200; J1885; J2405; J3030; J7030

== ENCOUNTER 2020-12-21 16:57 | Emergency (ER) | payer MEDICAID ==
[2020-12-21 17:27] VITALS: BP 124/79; PULSE 100
--- NOTE | 2020-12-21 17:58 | CR ---
PROCEDURE INFORMATION: Exam: XR Right Hand Exam date and time: 12/21/2020 5:29 PM Age: 25 years old Clinical indication: Pain; Other: Limited movement; Hand; Right TECHNIQUE: Imaging protocol: XR Right hand. Views: 1 or 2 views. COMPARISON: No relevant prior studies available. FINDINGS: Bones/joints: Normal. Soft tissues: Normal. IMPRESSION: No acute findings.
--- NOTE | 2020-12-21 18:10 | EDM.PDOC ---
ED HPI GENERAL MEDICAL PROBLEM - General Chief Complaint: Upper Extremity Injury/Pain Stated Complaint: THROBBING PAIN IN HAND Time Seen by Provider: 12/21/20 18:09 Source of Information: Reports: Patient, RN, RN Notes Reviewed History Limitations: Reports: No Limitations - History of Present Illness INITIAL COMMENTS - FREE TEXT/NARRATIVE: Carissa is a 25 y/o female who presents to the ED via personal vehicle with complaints of right hand pain. The patient reports her pain began approximately four hours prior, following waking up from a nap. She notes the pain originates in her midpalm and radiates into all fingers. Additionally, she notes numbness and tingling to her palm and fifth digit. The patient denies history of injury to this hand, but notes she did catch a large case of soda bottles with this hand earlier in the day. She has taken one dose of Tylenol which offered her moderate relief of pain. Right Hand Pain Score (Numeric/FACES): 7 - Related Data Allergies Allergy/AdvReac Type Severity Reaction Status Date / Time hydromorphone [From Dilaudid] Allergy Anaphylactic Verified 12/21/20 20:25 Shock Home Meds: Home Meds Amitriptyline HCl 150 mg PO BEDTIME 10/07/17 [History] Loratadine [Claritin] 10 mg PO DAILY 04/21/20 [History] clonazePAM [Clonazepam] 1 mg PO Q4H PRN 04/21/20 [History] Ibuprofen [Advil] 400 mg PO Q6H PRN 09/23/20 [History] Past Medical History - Past Health History Medical/Surgical History: Denies Medical/Surgical History HEENT History: Reports: Impaired Vision Cardiovascular History: Reports: None Respiratory History: Reports: Asthma Gastrointestinal History: Reports: Helicobacter Pylori Genitourinary History: Reports: None SHIFT MANAGER History: Reports: None Musculoskeletal History: Reports: Back Pain, Chronic, Other (See Below) Other Musculoskeletal History: bulging disk Neurological History: Reports: Migraines Psychiatric History: Reports: Anxiety Endocrine/Metabolic History: Reports: Obesity/BMI 30+ Hematologic History: Reports: None Immunologic History: Reports: None Oncologic (Cancer) History: Reports: None Dermatologic History: Reports: None - Infectious Disease History Infectious Disease History: Reports: None - Past Surgical History Head Surgeries/Procedures: Reports: None Social & Family History - Family History Family Medical History: No Pertinent Family History - Caffeine Use Caffeine Use: Reports: Soda - Recreational Drug Use Recreational Drug Use: No Review of Systems - Review of Systems Review Of Systems: Comprehensive ROS is negative, except as noted in HPI. ED EXAM, GENERAL - Physical Exam Exam: See Below Exam Limited By: No Limitations General Appearance: Alert, No Apparent Distress Eye Exam: Bilateral Eye: EOMI, Normal Inspection, PERRL (3mm) Ears: Normal External Exam, Hearing Grossly Normal Nose: Normal Inspection, Normal Mucosa, No Blood Throat/Mouth: Normal Inspection, Normal Oropharynx, Normal Voice, No Airway Compromise Head: Atraumatic, Normocephalic Neck: Normal Inspection, Supple, Non-Tender, Full Range of Motion Respiratory/Chest: No Respiratory Distress, Lungs Clear, Normal Breath Sounds, No Accessory Muscle Use, Chest Non-Tender Cardiovascular: Normal Peripheral Pulses, Regular Rate, Rhythm, No Edema, No Gallop, No JVD, No Murmur, No Rub Peripheral Pulses: 2+: Radial (L), Radial (R) GI/Abdominal: Normal Bowel Sounds, Soft, Non-Tender, No Distention, No Abnormal Bruit, No Mass, Pelvis Stable (Female) Exam: Deferred Rectal (Female) Exam: Deferred Back Exam: Normal Inspection, Full Range of Motion Extremities: Normal Capillary Refill, Arm Pain (To right palm, extending into fingers), Limited Range of Motion (Limited flexion and extension of fingers), O ther. No: Increased Warmth, Mottled, Pallor, Redness Neurological: Alert, Oriented, CN II-XII Intact, Normal Cognition, Normal Gait, Normal Reflexes, No Motor/Sensory Deficits, Other (Numbness to right palm and fifth digit) Psychiatric: Normal Affect, Normal Mood Skin Exam: Warm, Dry, Intact, Normal Color, No Rash. No: Cool, Cyanosis, Ecchymosis, Erythema, Increased Warmth, Jaundice, Mottled, Pallor, Petechiae, Wound/Incision Course - Vital Signs Last Recorded V/S: Last Vital Signs Temp 96.9 F 12/21/20 17:26 Pulse 100 12/21/20 17:26 Resp 20 12/21/20 17:26 BP 124/79 12/21/20 17:26 Pulse Ox 99 12/21/20 17:26 - Radiology Interpretation Free Text/Narrative:: [facility] Final Radiology Report Call: [phone] assistance Online chat: [email or web address] Name: CARISSA ONEILL Age: 25Years F Date: 12/21/2020 SSN: -- : 1995 Study: CR HAND 2V RT Requesting Physician: Latanya Huerta Images: 2 Addl Studies: Provided Clinical History: Limited Movement Contrast: Contrast Medium: Contrast Amount: Contrast Method: CONFIDENTIALITY STATEMENT This report is intended only for use by the referring physician, and only in accordance with law. If you received this in error, call [phone]. Page 1 of 1 PROCEDURE INFORMATION: Exam: XR Right Hand Exam date and time: 12/21/2020 5:29 PM Age: 25 years old Clinical indication: Pain; Other: Limited movement; Hand; Right TECHNIQUE: Imaging protocol: XR Right hand. Views: 1 or 2 views. COMPARISON: No relevant prior studies available. FINDINGS: Bones/joints: Normal. Soft tissues: Normal. IMPRESSION: No acute findings. Thank you for allowing us to participate in the care of your patient. Dictated and Authenticated by: Aniket Mesa MD 12/21/2020 5:57 PM Central Time ([place] & [place]) - Re-Assessments/Exams Free Text/Narrative Re-Assessment/Exam: 12/21/20 Findings of examination and imaging reviewed with patient. Patient instructed to follow up with primary care provider to schedule MRI for persistent hand pain. PT referral written by screen writer. Discussed supportive cares for generalized hand pain. Red flag signs and symptoms which would warrant reevaluation reviewed. Patient verbalized understanding and agreement with the plan of care. Departure - Departure Time of Disposition: 18:25 Disposition: Home, Self-Care 01 Condition: Good Clinical Impression: Right hand pain - Discharge Information *PRESCRIPTION DRUG MONITORING PROGRAM REVIEWED*: Not Applicable *COPY OF PRESCRIPTION DRUG MONITORING REPORT IN PATIENT MARIAA: Not Applicable Forms: ED Department Discharge Additional Instructions: 1.) You may take ibuprofen (Advil/Motrin) 400mg every six hours, as pain and swelling persists. You may also take acetaminophen (Tylenol) 650mg every six hours, as pain persists. You may stagger these medications so you are receiving a dose every three hours. 2.) You may alternate ice and heat to the area, as pain persists. 3.) Follow up with your primary care provider in 1-2 days regarding today's visit as you may warrant an MRI for further investigation into your hand pain. 4.) Follow up with physical therapy; a referral has been placed. Sepsis Event Note (ED) - Evaluation Sepsis Screening Result: No Definite Risk
== END 2020-12-21 18:31 | disposition home or self-care (01) ==
LOC: DL.ED 16:57
DX: M79.641 Pain in right hand (principal); J45.909 Unspecified asthma, uncomplicated; E66.9 Obesity, unspecified; Z68.39 Body mass index [BMI] 39.0-39.9, adult; Z88.5 Allergy status to narcotic agent; Z79.899 Other long term (current) drug therapy
CPT/HCPCS: 73120-RT; 99282; 99283-25

== ENCOUNTER 2021-01-03 21:41 | Emergency (ER) | payer MEDICAID ==
--- NOTE | 2021-01-03 22:36 | EDM.PDOC ---
ED HPI GENERAL MEDICAL PROBLEM - General Chief Complaint: ENT Problem Stated Complaint: TOP LEFT SIDE, INFECTED TOOTH Time Seen by Provider: 01/03/21 22:36 Source of Information: Reports: Patient, RN, RN Notes Reviewed History Limitations: Reports: No Limitations - History of Present Illness INITIAL COMMENTS - FREE TEXT/NARRATIVE: Patient is a 25-year-old female who presents to ER with complaint of dental abscess to the left upper molar, second. Patient states the pain began last night, she has taken ibuprofen with no help. Patient is also prescribed diclofenac and has used that without help. Patient admits to fever and chills. States she did go to dentistry today and was not able to get in, she is to be at the dentist at 7:30 AM tomorrow. Patient admits to anaphylactic shock to hydromorphone. Onset: Today Left Upper Tooth/Teeth Pain Score (Numeric/FACES): 10 - Related Data Allergies Allergy/AdvReac Type Severity Reaction Status Date / Time hydromorphone [From Dilaudid] Allergy Anaphylactic Verified 01/03/21 22:23 Shock Home Meds: Home Meds Amitriptyline HCl 150 mg PO BEDTIME 10/07/17 [History] Loratadine [Claritin] 10 mg PO DAILY 04/21/20 [History] clonazePAM [Clonazepam] 1 mg PO Q4H PRN 04/21/20 [History] Ibuprofen [Advil] 400 mg PO Q6H PRN 09/23/20 [History] Past Medical History - Past Health History Medical/Surgical History: Denies Medical/Surgical History HEENT History: Reports: Impaired Vision Cardiovascular History: Reports: None Respiratory History: Reports: Asthma Gastrointestinal History: Reports: Helicobacter Pylori Genitourinary History: Reports: None 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 Musculoskeletal History: Reports: Back Pain, Chronic, Other (See Below) Other Musculoskeletal History: bulging disk Neurological History: Reports: Migraines Psychiatric History: Reports: Anxiety Endocrine/Metabolic History: Reports: Obesity/BMI 30+ Hematologic History: Reports: None Immunologic History: Reports: None Oncologic (Cancer) History: Reports: None Dermatologic History: Reports: None - Infectious Disease History Infectious Disease History: Reports: None - Past Surgical History Head Surgeries/Procedures: Reports: None Social & Family History - Family History Family Medical History: No Pertinent Family History - Caffeine Use Caffeine Use: Reports: Coffee, Soda Other Caffeine Use: daily ED ROS ENT - Review of Systems Review Of Systems: Comprehensive ROS is negative, except as noted in HPI. ED EXAM, ENT - Physical Exam Exam: See Below Exam Limited By: No Limitations General Appearance: Alert, WD/WN, Moderate Distress Eye Exam: Bilateral Eye: EOMI, Normal Inspection Ears: Normal External Exam, Normal Canal, Hearing Grossly Normal, TM Dullness (left) Nose: Normal Inspection Mouth/Throat: Normal Inspection, Normal Lips, Normal Oropharynx, Normal Teeth, Dental Pain (left upper molar), Gum Swelling (left upper molar) Head: Atraumatic, Normocephalic Neck: Normal Inspection, Supple, Non-Tender, Full Range of Motion Respiratory/Chest: No Respiratory Distress, Lungs Clear, Normal Breath Sounds, No Accessory Muscle Use, Chest Non-Tender Cardiovascular: Normal Peripheral Pulses, Regular Rate, Rhythm, No Edema, No Gallop, No JVD, No Murmur, No Rub GI/Abdominal: Normal Bowel Sounds, Soft, Non-Tender, No Organomegaly, No Distention, No Abnormal Bruit, No Mass (Female) Exam: Deferred Rectal (Female) Exam: Deferred Back: Normal Inspection, Full Range of Motion Extremities: Normal Inspection, Normal Range of Motion, Non-Tender, No Pedal Edema, Normal Capillary Refill Neurological: Alert, Oriented, CN II-XII Intact, Normal Cognition, Normal Gait, Normal Reflexes, No Motor/Sensory Deficits Psychiatric: Normal Affect, Normal Mood, Anxious, Tearful Skin: Warm, Dry, Intact, Normal Color, No Rash Lymphatic: No Adenopathy Course - Vital Signs Last Recorded V/S: Last Vital Signs Temp 96.6 F L 01/03/21 22:41 Pulse 109 H 01/03/21 22:41 Resp 20 01/03/21 22:41 BP 147/93 H 01/03/21 22:41 Pulse Ox 93 L 01/03/21 22:41 - Orders/Labs/Meds Meds: Medications Discontinued Medications Generic Name Dose Route Start Last Admin Trade Name Scooby PRN Reason Stop Dose Admin Amoxicillin 500 mg 01/03/21 22:45 01/03/21 22:58 Amoxicillin 500 Mg Cap PO 01/03/21 22:46 500 mg ONETIME ONE Administration Fentanyl 50 mcg 01/03/21 22:43 01/03/21 22:58 Fentanyl 100 Mcg/2 Ml Sdv IM 01/03/21 22:44 50 mcg ONETIME ONE Administration Lidocaine HCl 15 ml 01/03/21 22:43 01/03/21 22:58 Lidocaine 2% Viscous Solution 15 Ml Cup PO 01/03/21 22:44 15 ml ONETIME ONE Administration Departure - Departure Time of Disposition: 22:54 Disposition: Home, Self-Care 01 Condition: Fair Clinical Impression: Dental abscess - Discharge Information *PRESCRIPTION DRUG MONITORING PROGRAM REVIEWED*: No *COPY OF PRESCRIPTION DRUG MONITORING REPORT IN PATIENT MARIAA: No Instructions: Dental Abscess, [id number] Forms: ED Department Discharge Additional Instructions: Continue to use 800 mg of ibuprofen every 8 hours at home May also use Tylenol as directed May use hot pack to the cheek as tolerated Follow-up with dentistry tomorrow morning as scheduled Rx: Amoxicillin 500 mg orally twice daily for 10 days Sepsis Event Note (ED) - Focused Exam Vital Signs: Vital Signs Temp Pulse Resp BP Pulse Ox 01/03/21 22:41 96.6 F L 109 H 20 147/93 H 93 L
[2021-01-03] MEDS ORDERED: Lidocaine 2% Viscous Solution 15 ML Cup PO ONE (22:43)
[2021-01-03] MEDS ORDERED: fentaNYL 100 MCG/2 ML SDV IM ONE (22:43)
[2021-01-03 22:44] VITALS: BP 147/93; PULSE 109
[2021-01-03] MEDS ORDERED: Amoxicillin 500 MG Cap PO ONE (22:45)
== END 2021-01-03 23:26 | disposition home or self-care (01) ==
LOC: DL.ED 21:41
DX: K04.7 Periapical abscess without sinus (principal); E66.9 Obesity, unspecified; Z68.30 Body mass index [BMI] 30.0-30.9, adult; Z88.5 Allergy status to narcotic agent
CPT/HCPCS: 96372; 99283; A9270; J3010

== ENCOUNTER 2021-02-05 10:24 | Emergency (ER) | payer MEDICAID ==
[2021-02-05 12:17] VITALS: BP 139/86; PULSE 86
[2021-02-05] MEDS ORDERED: Sodium Chloride 0.9% 10 ML Syringe FLUSH PRN (12:23)
[2021-02-05] MEDS ORDERED: Metoclopramide 10 MG/2 ML SDV IVPUSH ONE (12:35)
[2021-02-05] MEDS ORDERED: Ketorolac 30 MG/ML SDV IVPUSH ONE (12:35)
[2021-02-05] MEDS ORDERED: diphenhydrAMINE 50 MG/ML SDV IVPUSH ONE (12:35)
[2021-02-05] MEDS ORDERED: Sodium Chloride 0.9% 1,000 ML IV ONE (12:35)
[2021-02-05 13:19] LABS: CHLORIDE,CL 104 mmol/L (98-107); SODIUM,NA 140 mmol/L (136-145)
--- NOTE | 2021-02-05 13:36 | EDM.PDOC ---
Scribed by Nessa Andino 02/05/21 [id number] for Jorden Velez MD ED HPI GENERAL MEDICAL PROBLEM - General Chief Complaint: Headache Stated Complaint: [id number] HAS A MIGRAINE Time Seen by Provider: 02/05/21 12:10 Source of Information: Reports: Patient, RN, RN Notes Reviewed History Limitations: Reports: No Limitations - History of Present Illness INITIAL COMMENTS - FREE TEXT/NARRATIVE: Patient presents to ED by POV for evaluation of a headache, abdominal pain and nausea. Patient reports symptoms started on Sunday. Patient reports she has been vaccinated for the COVID. Denies cough, fever, sore throat. Admits to diarrhea and generalized abdominal cramping. Pt states the headache is the same as she usually experiences with her migraines, and she does not feel it is related to her abdominal symptoms. Onset Date: 02/02/21 Duration: Constant Location: Reports: Head, Abdomen Quality: Reports: Ache Severity: Moderate Improves with: Reports: None Worsens with: Reports: None Treatments OWNER/PHOTOGRAPHER: Reports: Acetaminophen Bilateral Frontal Headache Pain Score (Numeric/FACES): 9 - Related Data Allergies Allergy/AdvReac Type Severity Reaction Status Date / Time hydromorphone [From Dilaudid] Allergy Anaphylactic Verified 02/05/21 12:10 Shock Home Meds: Home Meds Amitriptyline HCl 150 mg PO BEDTIME 10/07/17 [History] Loratadine [Claritin] 10 mg PO DAILY 04/21/20 [History] clonazePAM [Clonazepam] 1 mg PO Q4H PRN 04/21/20 [History] Ibuprofen [Advil] 400 mg PO Q6H PRN 09/23/20 [History] buPROPion [Wellbutrin] 75 mg PO DAILY 02/05/21 [History] Past Medical History - Past Health History Medical/Surgical History: Denies Medical/Surgical History HEENT History: Reports: Impaired Vision Cardiovascular History: Reports: None Respiratory History: Reports: Asthma Gastrointestinal History: Reports: Helicobacter Pylori Genitourinary History: Reports: None SURFACE GRINDER History: Reports: None Musculoskeletal History: Reports: Back Pain, Chronic, Other (See Below) Other Musculoskeletal History: bulging disk Neurological History: Reports: Migraines Psychiatric History: Reports: Anxiety Endocrine/Metabolic History: Reports: Obesity/BMI 30+ Hematologic History: Reports: None Immunologic History: Reports: None Oncologic (Cancer) History: Reports: None Dermatologic History: Reports: None - Infectious Disease History Infectious Disease History: Reports: None - Past Surgical History Head Surgeries/Procedures: Reports: None Social & Family History - Family History Family Medical History: No Pertinent Family History - Caffeine Use Caffeine Use: Reports: Coffee, Soda Other Caffeine Use: daily - Living Situation & Occupation Living situation: Reports: with Family ED ROS GENERAL - Review of Systems Review Of Systems: Comprehensive ROS is negative, except as noted in HPI. - Physical Exam Exam: See Below Exam Limited By: No Limitations General Appearance: Alert, WD/WN, No Apparent Distress Eye Exam: Bilateral Eye: EOMI, Normal Inspection, PERRL Ears: Normal External Exam, Hearing Grossly Normal Nose: Normal Inspection, Normal Mucosa, No Blood Throat/Mouth: Normal Inspection, Normal Lips, Normal Teeth, Normal Gums, Normal Oropharynx, Normal Voice, No Airway Compromise Head Exam: Atraumatic, Normocephalic Neck: Normal Inspection, Supple, Non-Tender, Full Range of Motion Respiratory/Chest: No Respiratory Distress, Lungs Clear, Normal Breath Sounds, No Accessory Muscle Use, Chest Non-Tender Cardiovascular: Normal Peripheral Pulses, Regular Rate, Rhythm, No Edema, No Gallop, No JVD, No Murmur, No Rub GI/Abdominal: Normal Bowel Sounds, Soft, No Organomegaly, No Distention, Tender (Mild diffuse tenderness). No: Guarding, Rigid, Rebound (Female) Exam: Deferred Rectal (Female) Exam: Deferred Neuro Exam (Abbreviated): Alert, Oriented, CN II-XII Intact, Normal Cognition, Normal Gait, No Motor/Sensory Deficits Back Exam: Normal Inspection, Full Range of Motion, NT Extremities: Normal Inspection, Normal Range of Motion, Non-Tender, No Pedal Edema, Normal Capillary Refill Psychiatric: Normal Affect, Normal Mood Skin Exam: Warm, Dry, Intact, Normal Color, No Rash Course - Vital Signs Last Recorded V/S: Last Vital Signs Temp 97.9 F 02/05/21 12:13 Pulse 86 02/05/21 12:13 Resp 20 02/05/21 12:13 BP 139/86 02/05/21 12:13 Pulse Ox 98 02/05/21 12:13 - Orders/Labs/Meds Orders: Active Orders 24 hr Category Date Time Status Peripheral IV Care [RC] . DIRECTED Care 02/05/21 12:25 Active UA W/MICROSCOPIC [URIN] Stat Lab 02/05/21 12:50 Results Sodium Chloride 0.9% [Normal Saline] 1,000 ml Med 02/05/21 12:35 Active IV .BOLUS Sodium Chloride 0.9% [Saline Flush] Med 02/05/21 12:23 Active 10 ml FLUSH ASDIRECTED PRN Peripheral IV Insertion Adult [OM.PC] Stat Oth 02/05/21 12:25 Ordered Medication Orders Sodium Chloride (Normal Saline) 1,000 mls @ 999 mls/hr IV .BOLUS ONE Stop: 02/05/21 13:35 Last Admin: 02/05/21 12:40 Dose: 999 mls/hr Documented by: MAX Sodium Chloride (Sodium Chloride 0.9% 10 Ml Syringe) 10 ml FLUSH ASDIRECTED PRN PRN Reason: Keep Vein Open Last Admin: 02/05/21 13:16 Dose: 10 ml Documented by: MAX Labs: Laboratory Tests 02/05/21 02/05/21 02/05/21 Range/Units 12:50 12:50 12:55 WBC 9.5 (5.0-10.0) 10^3/uL RBC 5.07 (4.2-5.4) 10^6/uL Hgb 14.6 (12.0-16.0) g/dL Hct 44.4 (37.0-47.0) % MCV 87.6 (80-100) fL MCH 28.8 (27.0-34.0) pg MCHC 32.9 L (33.0-35.0) g/dL Plt Count 312 (150-450) 10^3/uL Neut % (Auto) 62.1 (42.2-75.2) % Lymph % (Auto) 26.7 (20.5-50.1) % [place] % (Auto) 7.9 (2-8) % Eos % (Auto) 3.1 H (1.0-3.0) % Baso % (Auto) 0.2 (0.0-1.0) % Sodium (136-145) mmol/L Potassium (3.5-5.1) mmol/L Chloride (98-107) mmol/L Carbon Dioxide (21-32) mmol/L Anion Gap (7-13) mEq/L BUN (7-18) mg/dL Creatinine (0.55-1.02) mg/dL Est Cr Clr Drug Dosing mL/min Estimated GFR (MDRD) BUN/Creatinine Ratio (No establ ref range) Glucose (70-99) mg/dL Calcium (8.5-10.1) mg/dL Total Bilirubin (0.2-1.0) mg/dL AST (15-37) U/L ALT (14-59) U/L Alkaline Phosphatase (46-116) U/L Total Protein (6.4-8.2) g/dL Albumin (3.4-5.0) g/dL Globulin Albumin/Globulin Ratio Amylase (25-115) U/L Lipase (73-393) U/L Urine Color Yellow (YELLOW) Urine Appearance Clear (CLEAR) Urine pH 5.5 (5.0-9.0) Ur Specific [place] >= 1.030 (1.005-1.030) Urine Protein Trace H (NEGATIVE) Urine Glucose (UA) Negative (NEGATIVE) Urine Ketones Negative (NEGATIVE) Urine Occult Blood Negative (NEGATIVE) Urine Nitrite Negative (NEGATIVE) Urine Bilirubin Negative (NEGATIVE) Urine Urobilinogen 0.2 (0.2-1.0) mg/dL Ur Leukocyte Esterase Negative (NEGATIVE) Urine HCG, Qual Negative 02/05/21 Range/Units 12:55 WBC (5.0-10.0) 10^3/uL RBC (4.2-5.4) 10^6/uL Hgb (12.0-16.0) g/dL Hct (37.0-47.0) % MCV (80-100) fL MCH (27.0-34.0) pg MCHC (33.0-35.0) g/dL Plt Count (150-450) 10^3/uL Neut % (Auto) (42.2-75.2) % Lymph % (Auto) (20.5-50.1) % [place] % (Auto) (2-8) % Eos % (Auto) (1.0-3.0) % Baso % (Auto) (0.0-1.0) % Sodium 140 (136-145) mmol/L Potassium 4.0 (3.5-5.1) mmol/L Chloride 104 (98-107) mmol/L Carbon Dioxide 26 (21-32) mmol/L Anion Gap 14.0 H (7-13) mEq/L BUN 7 (7-18) mg/dL Creatinine 0.65 (0.55-1.02) mg/dL Est Cr Clr Drug Dosing 112.26 mL/min Estimated GFR (MDRD) > 60 BUN/Creatinine Ratio 10.8 (No establ ref range) Glucose 96 (70-99) mg/dL Calcium 8.7 (8.5-10.1) mg/dL Total Bilirubin 0.3 (0.2-1.0) mg/dL AST 22 (15-37) U/L ALT 49 (14-59) U/L Alkaline Phosphatase 108 (46-116) U/L Total Protein 7.6 (6.4-8.2) g/dL Albumin 3.9 (3.4-5.0) g/dL Globulin 3.7 Albumin/Globulin Ratio 1.1 Amylase 24 L (25-115) U/L Lipase 56 L (73-393) U/L Urine Color (YELLOW) Urine Appearance (CLEAR) Urine pH (5.0-9.0) Ur Specific [place] (1.005-1.030) Urine Protein (NEGATIVE) Urine Glucose (UA) (NEGATIVE) Urine Ketones (NEGATIVE) Urine Occult Blood (NEGATIVE) Urine Nitrite (NEGATIVE) Urine Bilirubin (NEGATIVE) Urine Urobilinogen (0.2-1.0) mg/dL Ur Leukocyte Esterase (NEGATIVE) Urine HCG, Qual Meds: Medications Generic Name Dose Route Start Last Admin Trade Name Freq PRN Reason Stop Dose Admin Sodium Chloride 1,000 mls @ 999 mls/hr 02/05/21 12:35 02/05/21 12:40 Normal Saline IV 02/05/21 13:35 999 mls/hr .BOLUS ONE Administration Sodium Chloride 10 ml 02/05/21 12:23 02/05/21 13:16 Sodium Chloride 0.9% 10 Ml Syringe FLUSH 10 ml ASDIRECTED PRN Administration Keep Vein Open Discontinued Medications Generic Name Dose Route Start Last Admin Trade Name Freq PRN Reason Stop Dose Admin Diphenhydramine HCl 25 mg 02/05/21 12:35 02/05/21 13:08 Diphenhydramine 50 Mg/Ml Sdv IVPUSH 02/05/21 12:36 25 mg ONETIME ONE Administration Ketorolac Tromethamine 30 mg 02/05/21 12:35 02/05/21 13:11 Ketorolac 30 Mg/Ml Sdv IVPUSH 02/05/21 12:36 30 mg ONETIME ONE Administration Metoclopramide HCl 10 mg 02/05/21 12:35 02/05/21 13:14 Metoclopramide 10 Mg/2 Ml Sdv IVPUSH 02/05/21 12:36 10 mg ONETIME ONE Administration Departure - Departure Time of Disposition: 13:32 Disposition: Home, Self-Care 01 Condition: Good Clinical Impression: Migraine, Gastroenteritis - Discharge Information *PRESCRIPTION DRUG MONITORING PROGRAM REVIEWED*: Not Applicable *COPY OF PRESCRIPTION DRUG MONITORING REPORT IN PATIENT MARIAA: Not Applicable Instructions: Migraine Headache, [id number], Abdominal Pain, Adult, [id number] Forms: ED Department Discharge Additional Instructions: Rx: Reglan (Metoclopramide) 10mg for nausea or migraine. Rx: Bentyl (Dicyclomine) 20mg for abdominal pain. Follow up in clinic if not improved in 3 to 4 days. Sepsis Event Note (ED) - Focused Exam Vital Signs: Vital Signs Temp Pulse Resp BP Pulse Ox 02/05/21 12:13 97.9 F 86 20 139/86 98 - My Orders Last 24 Hours: My Active Orders 02/05/21 12:23 Sodium Chloride 0.9% [Saline Flush] 10 ml FLUSH ASDIRECTED PRN 02/05/21 12:25 Peripheral IV Care [RC] . DIRECTED Peripheral IV Insertion Adult [OM.PC] Stat 02/05/21 12:35 Sodium Chloride 0.9% [Normal Saline] 1,000 ml IV .BOLUS 02/05/21 12:50 UA W/MICROSCOPIC [URIN] Stat - Assessment/Plan Last 24 Hours: My Active Orders 02/05/21 12:23 Sodium Chloride 0.9% [Saline Flush] 10 ml FLUSH ASDIRECTED PRN 02/05/21 12:25 Peripheral IV Care [RC] . DIRECTED Peripheral IV Insertion Adult [OM.PC] Stat 02/05/21 12:35 Sodium Chloride 0.9% [Normal Saline] 1,000 ml IV .BOLUS 02/05/21 12:50 UA W/MICROSCOPIC [URIN] Stat I have read and agree with the documentation that has been completed regarding this visit. By signing this record, I attest that the documentation was completed in my physical presence and is an accurate record of the encounter.
== END 2021-02-05 13:55 | disposition home or self-care (01) ==
LOC: DL.ED 10:24
DX: G43.909 Migraine, unspecified, not intractable, without status migrainosus (principal); K52.9 Noninfective gastroenteritis and colitis, unspecified; E66.9 Obesity, unspecified; Z68.39 Body mass index [BMI] 39.0-39.9, adult; Z88.5 Allergy status to narcotic agent
CPT/HCPCS: 36415; 80053; 81001; 81025; 82150; 83690; 85025; 96374; 96375; 99284-25; J1200; J1885; J2765; J7030

== ENCOUNTER 2021-08-22 12:00 | Emergency (ER) | payer MEDICAID ==
[2021-08-22 12:21] VITALS: BP 169/93; PULSE 115
[2021-08-22] MEDS ORDERED: Ibuprofen 600 MG Tab PO ONE (12:43)
== END 2021-08-22 13:18 | disposition home or self-care (01) ==
LOC: DL.ED 12:00
DX: S93.401A Sprain of unspecified ligament of right ankle, initial encounter (principal); S93.601A Unspecified sprain of right foot, initial encounter; E66.9 Obesity, unspecified; Z68.38 Body mass index [BMI] 38.0-38.9, adult; Z88.5 Allergy status to narcotic agent; X50.1XXA Overexertion from prolonged static or awkward postures, initial encounter
CPT/HCPCS: 73610; 73630; 99283; A9270

== ENCOUNTER 2022-05-22 21:44 | Emergency (ER) | payer MEDICAID ==
[2022-05-22 22:57] VITALS: BP 145/91; PULSE 84
[2022-05-23] MEDS ORDERED: Sodium Chloride 0.9% 10 ML Syringe FLUSH PRN (02:00)
[2022-05-23] MEDS ORDERED: Ondansetron 4 MG/2 ML SDV IVPUSH ONE (03:01)
[2022-05-23] MEDS ORDERED: Ketorolac 30 MG/ML SDV IVPUSH ONE (03:06)
[2022-05-23] MEDS ORDERED: Iopamidol 612 MG/ML 100 ML Bottle IVPUSH ONE (03:08)
== END 2022-05-23 05:11 | disposition home or self-care (01) ==
LOC: DL.ED 21:44
DX: K52.9 Noninfective gastroenteritis and colitis, unspecified (principal); J45.909 Unspecified asthma, uncomplicated; E66.9 Obesity, unspecified; Z68.41 Body mass index [BMI] 40.0-44.9, adult; Z88.5 Allergy status to narcotic agent; Z79.899 Other long term (current) drug therapy
CPT/HCPCS: 36415; 74177; 80053; 81003; 81025; 83690; 85025; 96374; 96375; 99284; J1885; J2405; J3490

== ENCOUNTER 2022-06-27 20:02 | Emergency (ER) | payer MEDICAID ==
[2022-06-27] MEDS ORDERED: Sodium Chloride 0.9% 10 ML Syringe FLUSH PRN (20:07)
[2022-06-27 20:24] VITALS: BP 136/78; PULSE 97
[2022-06-27 20:48] LABS: PTT,PARTIAL THROMBOPLSTIN TIME 25.3 SEC (22.0-34.0)
[2022-06-27 20:51] LABS: ANION GAP 12.7 mEq/L (7-13)
[2022-06-27] MEDS ORDERED: Orphenadrine 60 MG/2 ML Inj IM ONE (21:35)
[2022-06-27] MEDS ORDERED: Ketorolac 30 MG/ML SDV IM ONE (21:35)
[2022-06-27] MEDS ORDERED: Amoxicillin/Clavulanate K 875-125 MG Tab PO ONE (21:35)
[2022-06-27] MEDS ORDERED: Ketorolac 30 MG/ML SDV IVPUSH ONE (21:38)
[2022-06-27 22:04] LABS: CORONAVIRUS COVID-19 NAA NEGATIVE (NEGATIVE); RESPIRATORY SYNCYTIAL VIR NAA NEGATIVE (NEGATIVE)
== END 2022-06-27 22:00 | disposition home or self-care (01) ==
LOC: DL.ED 20:02
DX: R55 Syncope and collapse (principal); J32.9 Chronic sinusitis, unspecified; E66.9 Obesity, unspecified; Z68.41 Body mass index [BMI] 40.0-44.9, adult; Z88.5 Allergy status to narcotic agent; Z20.822 Contact with and (suspected) exposure to COVID-19
CPT/HCPCS: 0241U; 36415; 70450; 72125; 80053; 82947; 83605; 84484; 84703; 85025; 85610; 85730; 93005; 93010; 96372; 96374; 99284; A9270; J1885; J2360; J3490

== ENCOUNTER 2022-07-05 02:14 | Emergency (ER) | payer MEDICAID ==
[2022-07-04 22:58] VITALS: BP 125/82; PULSE 90
[2022-07-04 23:26] LABS: ANION GAP 10.7 mEq/L (7-13)
[2022-07-05 00:47] LABS: AMPHETAMINES,URINE NEGATIVE (NEGATIVE); BARBITURATES,URINE NEGATIVE (NEGATIVE); BENZODIAZEPINE,URINE NEGATIVE (NEGATIVE); MDMA (ECSTASY), URINE NEGATIVE (NEGATIVE); METHADONE,URINE NEGATIVE (NEGATIVE); METHAMPHETAMINES,URINE NEGATIVE (NEGATIVE); OPIATES,URINE NEGATIVE (NEGATIVE); OXYCODONE,URINE NEGATIVE (NEGATIVE); PHENCYCLIDINE,URINE NEGATIVE (NEGATIVE); TCA,URINE NEGATIVE (NEGATIVE)
[~2022-07-05 02:14] MED LIST: Ketorolac 30 MG/ML SDV IVPUSH ONE
[2022-07-05] MEDS ORDERED: Ketorolac 30 MG/ML SDV IM ONE (02:19)
== END 2022-07-05 02:25 | disposition home or self-care (01) ==
LOC: DL.ED 02:14
DX: S39.011A Strain of muscle, fascia and tendon of abdomen, initial encounter (principal); E66.9 Obesity, unspecified; Z88.5 Allergy status to narcotic agent; Z68.41 Body mass index [BMI] 40.0-44.9, adult; X50.0XXA Overexertion from strenuous movement or load, initial encounter
CPT/HCPCS: 36415; 74176; 80053; 80305-QW; 81001; 81025; 82150; 83605; 83690; 85025; 96372; 99284; 99285; J1885

== ENCOUNTER 2022-07-19 23:04 | Emergency (ER) | payer MEDICAID ==
[2022-07-19 23:22] VITALS: BP 132/91; PULSE 91
[2022-07-19] MEDS: methylPREDNISolone Sodium Succinate 125 MG/2 ML SDV IM ONE (23:30)
== END 2022-07-19 23:40 | disposition home or self-care (01) ==
LOC: DL.ED 23:04
DX: M54.50 Low back pain, unspecified (principal); G89.29 Other chronic pain; E66.9 Obesity, unspecified; Z68.41 Body mass index [BMI] 40.0-44.9, adult; Z88.5 Allergy status to narcotic agent
CPT/HCPCS: 96372; 99283; 99284; J2930

== ENCOUNTER 2022-08-15 15:37 | Emergency (ER) | payer MEDICAID ==
[2022-08-15 15:59] VITALS: BP 127/81; PULSE 80
[2022-08-15 16:52] LABS: AMPHETAMINES,URINE NEGATIVE (NEGATIVE); BARBITURATES,URINE NEGATIVE (NEGATIVE); BENZODIAZEPINE,URINE NEGATIVE (NEGATIVE); MDMA (ECSTASY), URINE NEGATIVE (NEGATIVE); METHADONE,URINE NEGATIVE (NEGATIVE); METHAMPHETAMINES,URINE NEGATIVE (NEGATIVE); OPIATES,URINE NEGATIVE (NEGATIVE); OXYCODONE,URINE NEGATIVE (NEGATIVE); PHENCYCLIDINE,URINE NEGATIVE (NEGATIVE); TCA,URINE NEGATIVE (NEGATIVE)
[2022-08-15 17:12] LABS: ANION GAP 12.9 mEq/L (7-13); CHLORIDE,CL 107 mmol/L (98-107); SODIUM,NA 140 mmol/L (136-145)
[2022-08-15 17:13] LABS: ACETAMINOPHEN 0 ug/mL (10-30 (Therapeutic)); ESTIMATED GFR 127 mL/min (>=60)
== END 2022-08-15 18:33 | disposition other institution (70) ==
LOC: DL.ED 15:37
DX: R45.851 Suicidal ideations (principal); E66.9 Obesity, unspecified; Z68.41 Body mass index [BMI] 40.0-44.9, adult; Z88.5 Allergy status to narcotic agent
CPT/HCPCS: 36415; 80053; 80143; 80179; 80305-QW; 80307; 81001; 84703; 85025; 99283; 99284

== ENCOUNTER 2022-09-16 14:30 | Emergency (ER) | payer MEDICAID ==
[2022-09-16 15:48] VITALS: BP 122/79; PULSE 101
[2022-09-16] MEDS ORDERED: Ketorolac 30 MG/ML SDV IVPUSH ONE (15:59)
[2022-09-16] MEDS ORDERED: Orphenadrine 60 MG/2 ML Inj IM ONE (15:59)
[2022-09-16] MEDS ORDERED: predniSONE 20 MG Tab ONE (16:05)
[2022-09-16] MEDS ORDERED: Ketorolac 30 MG/ML SDV IM ONE (16:14)
== END 2022-09-16 16:13 | disposition home or self-care (01) ==
LOC: DL.ED 14:30
DX: M54.42 Lumbago with sciatica, left side (principal); G89.29 Other chronic pain; J45.909 Unspecified asthma, uncomplicated; E66.9 Obesity, unspecified; Z68.41 Body mass index [BMI] 40.0-44.9, adult; Z88.5 Allergy status to narcotic agent
CPT/HCPCS: 96372; 96374; 99283; J1885; J2360

== ENCOUNTER 2023-04-30 13:53 | Emergency (ER) | payer MEDICAID ==
[2023-04-30] MEDS ORDERED: Sodium Chloride 0.9% 10 ML Syringe FLUSH PRN (14:15)
[2023-04-30 14:23] LABS: BASOPHILS PERCENT AUTO 0.7 % (0.0-1.0); EOSINOPHILS PERCENT AUTO 2.3 % (1.0-3.0); HEMATOCRIT 43.9 % (37.0-47.0); HEMOGLOBIN 14.2 g/dL (12.0-16.0); LYMPHOCYTES PERCENT AUTO 22.2 % (20.5-50.1); MEAN CORPUSCULAR HEMOGLOBIN 27.9 pg (27.0-34.0); MEAN CORPUSCULAR HGB CONC 32.3 g/dL (33.0-35.0); MEAN CORPUSCULAR VOLUME 86.2 fL (80-100); MONOCYTES PERCENT AUTO 5.9 % (2-8); NEUTROPHILS PERCENT AUTO 68.9 % (42.2-75.2); PLATELET COUNT,PLT 336 10^3/uL (150-450); RED BLOOD CELL COUNT 5.09 10^6/uL (4.2-5.4); WHITE BLOOD CELL COUNT,WBC 9.9 10^3/uL (5.0-10.0)
[2023-04-30 14:45] LABS: APPEARANCE,URINE CLEAR (CLEAR); BILIRUBIN,URINE NEGATIVE (NEGATIVE); COLOR,URINE YELLOW (YELLOW); GLUCOSE,URINE NEGATIVE (NEGATIVE); KETONES,URINE NEGATIVE (NEGATIVE); LEUKOCYTE ESTERASE,URINE NEGATIVE (NEGATIVE); NITRITE,URINE NEGATIVE (NEGATIVE); OCCULT BLOOD,URINE LARGE (NEGATIVE); PROTEIN,URINE NEGATIVE (NEGATIVE); UROBILINOGEN,URINE 0.2 mg/dL (0.2-1.0)
[2023-04-30 14:47] LABS: LACTIC ACID 1.2 mmol/L (0.4-2.0)
[2023-04-30 14:51] LABS: AMPHETAMINES,URINE NEGATIVE (NEGATIVE); BARBITURATES,URINE NEGATIVE (NEGATIVE); BENZODIAZEPINE,URINE NEGATIVE (NEGATIVE); MDMA (ECSTASY), URINE NEGATIVE (NEGATIVE); METHADONE,URINE NEGATIVE (NEGATIVE); METHAMPHETAMINES,URINE NEGATIVE (NEGATIVE); OPIATES,URINE NEGATIVE (NEGATIVE); OXYCODONE,URINE NEGATIVE (NEGATIVE); PHENCYCLIDINE,URINE NEGATIVE (NEGATIVE); TCA,URINE POSITIVE (NEGATIVE)
[2023-04-30 14:52] LABS: ALANINE AMINOTRANSFERASE,ALT 27 U/L (14-59); ALBUMIN 3.9 g/dL (3.4-5.0); ALKALINE PHOSPHATASE 107 U/L (46-116); ANION GAP 10.7 mEq/L (7-13); ASPARTATE AMNIOTRANSFERASE,AST 12 U/L (15-37); BILIRUBIN TOTAL 0.3 mg/dL (0.2-1.0); BLOOD UREA NITROGEN,BUN 9 mg/dL (7-18); BUN/CREATININE RATIO 11.1 (No establ ref range); CALCIUM 9.1 mg/dL (8.5-10.1); CARBON DIOXIDE,CO2 26 mmol/L (21-32); CHLORIDE,CL 107 mmol/L (98-107); CREATININE 0.81 mg/dL (0.55-1.02); EST CRCL DRUG DOSING (CG) 91.38 mL/min; GLUCOSE RANDOM 120 mg/dL (70-99); MAGNESIUM 2.1 mg/dL (1.8-2.4); POTASSIUM,K 3.7 mmol/L (3.5-5.1); PROTEIN TOTAL,TP 7.7 g/dL (6.4-8.2); SODIUM,NA 140 mmol/L (136-145); TSH ULTRASENSITIVE 2.41 uIU/mL (0.36-3.74)
[2023-04-30 14:53] LABS: C-REACTIVE PROTEIN < 0.50 ng/dL (<=0.50); ESTIMATED GFR 100 mL/min (>=60)
[2023-04-30 14:57] LABS: EPITHELIAL CELLS,URINE MODERATE /HPF (NOT SEEN); MUCUS,URINE MODERATE /LPF (NOT SEEN)
[2023-04-30 14:58] LABS: AMORPHOUS SEDIMENT,URINE FEW /HPF (NOT SEEN); BACTERIA,URINE MODERATE /HPF (0-FEW/HPF); WBC,URINE 0-5 /HPF (0-5/HPF)
[2023-04-30 15:23] VITALS: BP 114/76; PULSE 89
== END 2023-04-30 15:22 | disposition home or self-care (01) ==
LOC: DL.ED 13:53
DX: Z02.89 Encounter for other administrative examinations (principal); J45.909 Unspecified asthma, uncomplicated; E66.9 Obesity, unspecified; Z79.899 Other long term (current) drug therapy; Z88.8 Allergy status to other drugs, medicaments and biological substances; Z68.41 Body mass index [BMI] 40.0-44.9, adult
CPT/HCPCS: 36415; 80053; 80305-QW; 81001; 81025; 83605; 83735; 84443; 85025; 86140; 93005; 93010; 99284

== ENCOUNTER 2023-06-28 12:39 | Emergency (ER) | payer BC, MEDICAID ==
[2023-06-28 13:00] VITALS: BP 127/89; PULSE 101
[2023-06-28 13:59] LABS: APPEARANCE,URINE CLEAR (CLEAR); BILIRUBIN,URINE NEGATIVE (NEGATIVE); COLOR,URINE YELLOW (YELLOW); GLUCOSE,URINE NEGATIVE (NEGATIVE); KETONES,URINE NEGATIVE (NEGATIVE); LEUKOCYTE ESTERASE,URINE NEGATIVE (NEGATIVE); NITRITE,URINE NEGATIVE (NEGATIVE); OCCULT BLOOD,URINE LARGE (NEGATIVE); PROTEIN,URINE NEGATIVE (NEGATIVE)
[2023-06-28 14:26] LABS: AMORPHOUS SEDIMENT,URINE OCCASIONAL /HPF (NOT SEEN); BACTERIA,URINE FEW /HPF (0-FEW/HPF); EPITHELIAL CELLS,URINE OCCASIONAL /HPF (NOT SEEN); MUCUS,URINE FEW /LPF (NOT SEEN); RBC,URINE 50-75 /HPF (0-5); WBC,URINE 0-5 /HPF (0-5/HPF)
[2023-06-28] MEDS ORDERED: Naproxen 250 MG Tab PO ONE (14:54)
== END 2023-06-28 14:59 | disposition home or self-care (01) ==
LOC: DL.ED 12:39
DX: N93.8 Other specified abnormal uterine and vaginal bleeding (principal); J45.909 Unspecified asthma, uncomplicated; E66.9 Obesity, unspecified; Z79.899 Other long term (current) drug therapy; Z88.5 Allergy status to narcotic agent; Z68.41 Body mass index [BMI] 40.0-44.9, adult
CPT/HCPCS: 76856; 81001; 81025; 99284; A9270-GY

== ENCOUNTER 2023-07-30 15:19 | Emergency (ER) | payer BC, MEDICAID ==
[2023-07-30 17:19] LABS: HEMATOCRIT 44.1 % (37.0-47.0); HEMOGLOBIN 14.4 g/dL (12.0-16.0); MEAN CORPUSCULAR HEMOGLOBIN 28.3 pg (27.0-34.0); MEAN CORPUSCULAR HGB CONC 32.7 g/dL (33.0-35.0); MEAN CORPUSCULAR VOLUME 86.6 fL (80-100); PLATELET COUNT,PLT 365 10^3/uL (150-450); RED BLOOD CELL COUNT 5.09 10^6/uL (4.2-5.4); WHITE BLOOD CELL COUNT,WBC 11.1 10^3/uL (5.0-10.0)
[2023-07-30 17:33] LABS: A/G RATIO 1.1; ANION GAP 16.1 mEq/L (7-13); BILIRUBIN TOTAL 0.2 mg/dL (0.2-1.0); BUN/CREATININE RATIO 15.7 (No establ ref range); CREATININE 0.7 mg/dL (0.55-1.02); EST CRCL DRUG DOSING (CG) 105.74 mL/min; MAGNESIUM 2.3 mg/dL (1.8-2.4); POTASSIUM,K 4.1 mmol/L (3.5-5.1); PROTEIN TOTAL,TP 7.5 g/dL (6.4-8.2)
[2023-07-30 17:34] LABS: BASOPHILS PERCENT AUTO 0.7 % (0.0-1.0); EOSINOPHILS PERCENT AUTO 3.7 % (1.0-3.0); LYMPHOCYTES PERCENT AUTO 22.5 % (20.5-50.1); MONOCYTES PERCENT AUTO 7.9 % (2-8); NEUTROPHILS PERCENT AUTO 65.2 % (42.2-75.2)
[2023-07-30 17:42] LABS: EOSINOPHILS PERCENT MAN 2 % (1-3); LYMPHOCYTES PERCENT MAN 27 % (20-50); MONOCYTES PERCENT MAN 5 % (2-8); MYELOCYTE PERCENT MAN 1; SEG NEUTROPHILS PERCENT MAN 65 % (42-75)
[2023-07-30 17:43] LABS: PLATELET COUNT ESTIMATE ADEQUATE
[2023-07-30 18:27] VITALS: BP 135/87; PULSE 95
[2023-07-30 19:08] LABS: APPEARANCE,URINE CLEAR (CLEAR); BILIRUBIN,URINE NEGATIVE (NEGATIVE); COLOR,URINE YELLOW (YELLOW); GLUCOSE,URINE NEGATIVE (NEGATIVE); KETONES,URINE TRACE (NEGATIVE); LEUKOCYTE ESTERASE,URINE NEGATIVE (NEGATIVE); NITRITE,URINE NEGATIVE (NEGATIVE); OCCULT BLOOD,URINE TRACE-INTACT (NEGATIVE); PROTEIN,URINE NEGATIVE (NEGATIVE); UROBILINOGEN,URINE 0.2 mg/dL (0.2-1.0)
[2023-07-30 19:18] LABS: WBC,URINE 0-5 /HPF (0-5/HPF)
[2023-07-30 19:19] LABS: BACTERIA,URINE FEW /HPF (0-FEW/HPF); CALCIUM OXALATE CRYSTALS,URINE OCCASIONAL /HPF (NOT SEEN); EPITHELIAL CELLS,URINE FEW /HPF (NOT SEEN); MUCUS,URINE MODERATE /LPF (NOT SEEN); RBC,URINE 0-5 /HPF (0-5)
== END 2023-07-30 19:03 | disposition home or self-care (01) ==
LOC: DL.ED 15:19
DX: R19.5 Other fecal abnormalities (principal); J45.909 Unspecified asthma, uncomplicated; E66.9 Obesity, unspecified; Z88.8 Allergy status to other drugs, medicaments and biological substances; Z79.899 Other long term (current) drug therapy; Z68.41 Body mass index [BMI] 40.0-44.9, adult
CPT/HCPCS: 36415; 80053; 80178; 81001; 81025; 83735; 85025; 99283

== ENCOUNTER 2023-11-28 08:00 | Emergency (ER) | payer BC, MEDICAID ==
[2023-11-28 08:26] VITALS: BP 140/93; PULSE 74
[2023-11-28 09:03] LABS: BASOPHILS PERCENT AUTO 0.7 % (0.0-1.0); EOSINOPHILS PERCENT AUTO 4.7 % (1.0-3.0); HEMATOCRIT 42.4 % (37.0-47.0); HEMOGLOBIN 14.1 g/dL (12.0-16.0); LYMPHOCYTES PERCENT AUTO 28.8 % (20.5-50.1); MEAN CORPUSCULAR HEMOGLOBIN 28.6 pg (27.0-34.0); MEAN CORPUSCULAR HGB CONC 33.3 g/dL (33.0-35.0); MONOCYTES PERCENT AUTO 7.7 % (2-8); NEUTROPHILS PERCENT AUTO 58.1 % (42.2-75.2); PLATELET COUNT,PLT 296 10^3/uL (150-450); RED BLOOD CELL COUNT 4.93 10^6/uL (4.2-5.4); WHITE BLOOD CELL COUNT,WBC 8.1 10^3/uL (5.0-10.0)
[2023-11-28] MEDS: Sodium Chloride 0.9% 10 ML Syringe FLUSH PRN (09:04)
[2023-11-28 09:28] LABS: HCG QUALITATIVE,SERUM NEGATIVE (NEGATIVE)
[2023-11-28 09:32] LABS: ANION GAP 12.9 mEq/L (7-13); BLOOD UREA NITROGEN,BUN 10 mg/dL (7-18); CALCIUM 8.9 mg/dL (8.5-10.1); CARBON DIOXIDE,CO2 23 mmol/L (21-32); CHLORIDE,CL 108 mmol/L (98-107); EST CRCL DRUG DOSING (CG) 105.74 mL/min; GLUCOSE RANDOM 109 mg/dL (70-99); POTASSIUM,K 3.9 mmol/L (3.5-5.1); SODIUM,NA 140 mmol/L (136-145)
[2023-11-28 09:35] LABS: ESTIMATED GFR 119 mL/min (>=60)
[2023-11-28] MEDS: Ondansetron 4 MG/2 ML SDV IVPUSH ONE (09:49)
[2023-11-28] MEDS: Ketorolac 30 MG/ML SDV IVPUSH ONE (09:50)
== END 2023-11-28 10:27 | disposition home or self-care (01) ==
LOC: DL.ED 08:00
DX: G44.209 Tension-type headache, unspecified, not intractable (principal); I10 Essential (primary) hypertension; Z88.5 Allergy status to narcotic agent; Z79.899 Other long term (current) drug therapy
CPT/HCPCS: 36415; 80048; 84703; 85025; 96374; 96375; 99283; 99283-25; J1885; J2405; J3490

== ENCOUNTER 2024-02-26 02:38 | Emergency (ER) | payer BC ==
[2024-02-26 03:07] VITALS: BP 121/84; PULSE 88
[2024-02-26] MEDS ORDERED: Sodium Chloride 0.9% 10 ML Syringe FLUSH PRN (03:25)
[2024-02-26] MEDS ORDERED: Naloxone 2 MG/2 ML Syringe IVPUSH PRN (03:26)
[2024-02-26] MEDS: Iopamidol 612 MG/ML 100 ML Bottle IVPUSH ONE (03:28)
[2024-02-26 03:34] LABS: BASOPHILS PERCENT AUTO 0.7 % (0.0-1.0); HEMATOCRIT 42.5 % (37.0-47.0); HEMOGLOBIN 14.2 g/dL (12.0-16.0); LYMPHOCYTES PERCENT AUTO 29.8 % (20.5-50.1); MEAN CORPUSCULAR HGB CONC 33.4 g/dL (33.0-35.0); MEAN CORPUSCULAR VOLUME 86.9 fL (80-100); MONOCYTES PERCENT AUTO 10.5 % (2-8); PLATELET COUNT,PLT 329 10^3/uL (150-450); RED BLOOD CELL COUNT 4.89 10^6/uL (4.2-5.4); WHITE BLOOD CELL COUNT,WBC 9.2 10^3/uL (5.0-10.0)
[2024-02-26] MEDS: Metoclopramide 10 MG/2 ML SDV IVPUSH ONE (03:35)
[2024-02-26] MEDS: Sodium Chloride 0.9% 1,000 ML IV ONE (03:38)
[2024-02-26] MEDS: Morphine 2 MG/ML SYRINGE IVPUSH ONE (03:38)
[2024-02-26 03:43] LABS: A/G RATIO 1.1; ALANINE AMINOTRANSFERASE,ALT 93 U/L (14-59); ALBUMIN 3.7 g/dL (3.4-5.0); ALKALINE PHOSPHATASE 133 U/L (46-116); ANION GAP 14.8 mEq/L (7-13); ASPARTATE AMNIOTRANSFERASE,AST 49 U/L (15-37); BILIRUBIN TOTAL 0.6 mg/dL (0.2-1.0); BLOOD UREA NITROGEN,BUN 11 mg/dL (7-18); BUN/CREATININE RATIO 15.9 (No establ ref range); CALCIUM 9.4 mg/dL (8.5-10.1); CARBON DIOXIDE,CO2 24 mmol/L (21-32); CHLORIDE,CL 106 mmol/L (98-107); CREATININE 0.69 mg/dL (0.55-1.02); EST CRCL DRUG DOSING (CG) 107.28 mL/min; ESTIMATED GFR 120 mL/min (>=60); GLUCOSE RANDOM 103 mg/dL (70-99); LIPASE 12 U/L (16-77); POTASSIUM,K 3.8 mmol/L (3.5-5.1); PROTEIN TOTAL,TP 7.1 g/dL (6.4-8.2); SODIUM,NA 141 mmol/L (136-145)
[2024-02-26 03:54] LABS: PROTHROMBIN TIME 10.2 SEC (9.0-12.0)
[2024-02-26 03:56] LABS: HCG QUALITATIVE,SERUM NEGATIVE (NEGATIVE)
[2024-02-26 06:58] LABS: APPEARANCE,URINE CLEAR (CLEAR); BILIRUBIN,URINE NEGATIVE (NEGATIVE); COLOR,URINE YELLOW (YELLOW); GLUCOSE,URINE NEGATIVE (NEGATIVE); KETONES,URINE NEGATIVE (NEGATIVE); LEUKOCYTE ESTERASE,URINE NEGATIVE (NEGATIVE); NITRITE,URINE NEGATIVE (NEGATIVE); OCCULT BLOOD,URINE SMALL (NEGATIVE); PROTEIN,URINE NEGATIVE (NEGATIVE); UROBILINOGEN,URINE 0.2 mg/dL (0.2-1.0)
[2024-02-26 07:37] LABS: BACTERIA,URINE OCCASIONAL /HPF (0-FEW/HPF); EPITHELIAL CELLS,URINE OCCASIONAL /HPF (NOT SEEN); MUCUS,URINE RARE /LPF (NOT SEEN); RBC,URINE 0-5 /HPF (0-5); WBC,URINE NOT SEEN /HPF (0-5/HPF)
[2024-02-26] MEDS: GI Cocktail Oral Solution 30 ML PO ONE (07:46)
== END 2024-02-26 09:27 | disposition home or self-care (01) ==
LOC: DL.ED 02:38
DX: R10.31 Right lower quadrant pain (principal); I10 Essential (primary) hypertension; J45.909 Unspecified asthma, uncomplicated; E66.9 Obesity, unspecified; Z79.899 Other long term (current) drug therapy; Z88.5 Allergy status to narcotic agent
CPT/HCPCS: 36415; 74177; 76705; 76830; 80053; 81001; 83605; 83690; 84703; 85025; 85610; 85730; 96361; 96374; 96375; 99284; 99284-25; A9270-GY; J2270; J2765; J7030; Q9967

== ENCOUNTER 2025-01-19 20:38 | Emergency (ER) | payer BC, OTHER ==
[2025-01-19 21:17] VITALS: BP 146/81; PULSE 105
== END 2025-01-19 22:15 | disposition home or self-care (01) ==
LOC: DL.ED 20:38
DX: S90.32XA Contusion of left foot, initial encounter (principal); I10 Essential (primary) hypertension; J45.909 Unspecified asthma, uncomplicated; Z88.5 Allergy status to narcotic agent; Z79.899 Other long term (current) drug therapy; W20.8XXA Other cause of strike by thrown, projected or falling object, initial encounter; Y93.89 Activity, other specified
CPT/HCPCS: 73630-LT; 99282; 99283